=== PATIENT | male | born 1985 | race Two or more races ===

== ENCOUNTER 2019-03-23 09:27 | Emergency (ER) | payer SELFPAY ==
--- NOTE | 2019-03-23 10:18 | EDM.PDOC ---
ED HPI GENERAL MEDICAL PROBLEM - General Chief Complaint: Lower Extremity Injury/Pain Stated Complaint: LEFT LOWER LEG PAIN Time Seen by Provider: 03/23/19 09:47 Source of Information: Reports: Patient History Limitations: Reports: No Limitations - History of Present Illness INITIAL COMMENTS - FREE TEXT/NARRATIVE: HISTORY AND PHYSICAL: History of present illness: 33-year-old male presents to ER complaining of left posterior knee pain which started approximately 1 week ago. Patient describes the pain as being throbbing , aching and cramping in nature. Patient reports that the pain originates behind his left knee and upper calf area and at times can extend up his thigh and down his left calf. Patient reports the pain is aggravated by lying down and when stepping on the clutch in his truck. He reports the pain is alleviated by standing. The pain is rated as an 8 out of 10 when it is at its worst. Patient denies any history of left knee surgery or any trauma recently. He reports the pain started insidiously and has been slowly getting worse. 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 Patient has tried taking [id number] ibuprofen but has only had minimal relief. Denies any tobacco use or illicit drug use. Drinks alcohol approximately once or twice per month. Patient denies having any fevers, chills, blurry vision, sore throat, cough, shortness of breath, chest pain, palpitations, nausea, abdominal pain, numbness or tingling in extremities. Review of systems: As per history of present illness and below otherwise all systems reviewed and negative. Past medical history: As per history of present illness and as reviewed below otherwise noncontributory. Surgical history: As per history of present illness and as reviewed below otherwise noncontributory. Social history: No reported history of drug or alcohol abuse. Family history: As per history of present illness and as reviewed below otherwise noncontributory. Physical exam: HEENT: Atraumatic, normocephalic, pupils reactive, negative for conjunctival pallor or scleral icterus, mucous membranes moist, throat clear, neck supple, nontender, trachea midline. Lungs: Clear to auscultation. Heart: S1S2, regular. Abdomen: Soft, nondistended, nontender. Non-distended. Pelvis: Deferred. Genitourinary: Deferred. Rectal: Deferred. Extremities: No lower extremity edema appreciated bilaterally. Left Knee: - no obvious deformity, erythema or edema on inspection - anterior knee is non-tender to palpation - tenderness elicited on palpation of biceps femoris tendon Left Calf: - no obvious deformity, erythema or edema on inspection - Kike's sign negative, no induration appreciated or increased warmth Neuro: Awake, alert, oriented. Cranial nerves II through XII unremarkable. Motor and sensory unremarkable throughout. Exam nonfocal. Diagnostics: Left Knee x-ray - negative Left lower extremity venous doppler U/S - no DVT Therapeutics: IM Ketorolac 60 mg IM x 1 Impression: 1. Left knee pain 2. Hypertension Plan: 1. For left knee pain, recommended rest, ice, compression and elevation. Also provided script for diclofenac 25 mg BID PRN. Advised patient to follow-up with primary care provider if pain persists or worsens. 2. For hypertension, advised she do follow up with his primary care provider to have his blood pressure rechecked. Patient denies any prior history of hypertension and is asymptomatic at this time. Definitive disposition and diagnosis as appropriate pending reevaluation and review of above. Left knee Pain Score (Numeric/FACES): 9 - Related Data Allergies Allergy/AdvReac Type Severity Reaction Status Date / Time Penicillins Allergy Airway Verified 03/23/19 09:39 Tightness Home Meds: Home Meds Diclofenac Sodium 25 mg PO BID PRN 14 Days #28 tablet. 03/23/19 [Rx] Past Medical History - Past Health History Medical/Surgical History: Denies Medical/Surgical History HEENT History: Reports: None Cardiovascular History: Reports: None Respiratory History: Reports: None Gastrointestinal History: Reports: None Genitourinary History: Reports: None Musculoskeletal History: Reports: None Neurological History: Reports: None Psychiatric History: Reports: None Endocrine/Metabolic History: Reports: None Hematologic History: Reports: None Immunologic History: Reports: None Oncologic (Cancer) History: Reports: None Dermatologic History: Reports: None - Past Surgical History Head Surgeries/Procedures: Reports: None HEENT Surgical History: Reports: None Cardiovascular Surgical History: Reports: None Respiratory Surgical History: Reports: None GI Surgical History: Reports: None Male Surgical History: Reports: None Endocrine Surgical History: Reports: None Neurological Surgical History: Reports: None Musculoskeletal Surgical History: Reports: None Oncologic Surgical History: Reports: None Dermatological Surgical History: Reports: None Social & Family History - Family History Family Medical History: Noncontributory - Tobacco Use Smoking Status *Q: Never Smoker Second Hand Smoke Exposure: No - Caffeine Use Caffeine Use: Reports: Coffee - Recreational Drug Use Recreational Drug Use: No Review of Systems - Review of Systems Review Of Systems: ROS reveals no pertinent complaints other than HPI. ED EXAM, GENERAL - Physical Exam Exam: See Below Course - Vital Signs Last Recorded V/S: Last Vital Signs Temp 96.7 F 03/23/19 09:37 Pulse 95 03/23/19 09:37 Resp 18 03/23/19 09:37 BP 168/79 H 03/23/19 09:37 Pulse Ox 95 03/23/19 09:37 - Orders/Labs/Meds Orders: Active Orders 24 hr Category Date Time Status Ketorolac [Toradol] Med 03/23/19 12:10 Once 60 mg IM ONETIME ONE Departure - Departure Time of Disposition: 12:13 Disposition: Home, Self-Care 01 Condition: Fair Clinical Impression: Left knee pain - Discharge Information *PRESCRIPTION DRUG MONITORING PROGRAM REVIEWED*: Not Applicable *COPY OF PRESCRIPTION DRUG MONITORING REPORT IN PATIENT GONZALEZ: Not Applicable Prescriptions: Diclofenac Sodium 25 mg PO BID PRN 14 Days #28 tablet.dr SANTILLAN Reason: Pain Instructions: Knee Pain, Adult Referrals: PCP,None [Primary Care Provider] - Forms: ED Department Discharge Additional Instructions: The following information is given to patients seen in the emergency department who are being discharged to home. This information is to outline your options for follow-up care. We provide all patients seen in our emergency department with a follow-up referral. The need for follow-up, as well as the timing and circumstances, are variable depending upon the specifics of your emergency department visit. If you don't have a primary care physician on staff, we will provide you with a referral. We always advise you to contact your personal physician following an emergency department visit to inform them of the circumstance of the visit and for follow-up with them and/or the need for any referrals to a consulting specialist. The emergency department will also refer you to a specialist when appropriate. This referral assures that you have the opportunity for follow-up care with a specialist. All of these measure are taken in an effort to provide you with optimal care, which includes your follow-up. Under all circumstances we always encourage you to contact your private physician who remains a resource for coordinating your care. When calling for follow-up care, please make the office aware that this follow-up is from your recent emergency room visit. If for any reason you are refused follow-up, please contact the [facility] Emergency Department at and asked to speak to the emergency department charge nurse. - My Orders Last 24 Hours: My Active Orders 03/23/19 12:10 Ketorolac [Toradol] 60 mg IM ONETIME ONE - Assessment/Plan Last 24 Hours: My Active Orders 03/23/19 12:10 Ketorolac [Toradol] 60 mg IM ONETIME ONE
--- NOTE | 2019-03-23 10:38 | CR ---
INDICATION: Left knee pain. TECHNIQUE: Three views of the left knee. COMPARISON: None. FINDINGS: No joint effusion, joint space narrowing, chondrocalcinosis or other abnormality. IMPRESSION: Negative left knee. Dictated by Ceasar Jim MD @ Mar 23 2019 10:34AM Signed by Dr. Ceasar Jim @ Mar 23 2019 10:36AM
--- NOTE | 2019-03-23 11:56 | US ---
Left lower extremity deep venous ultrasound: Duplex and color Doppler imaging was obtained of the left common femoral, superficial femoral, popliteal, anterior tibial and peroneal veins. Comparison: No prior venous imaging. Findings: Normal compression, augmentation and phasic flow is noted. Impression: No evidence of deep venous thrombosis within the left lower extremity. Diagnostic code #1 MTDD
[2019-03-23] MEDS ORDERED: Ketorolac 60 MG/2 ML SDV IM ONE (12:10)
[2019-03-23 12:28] VITALS: BP 129/78; PULSE 85
== END 2019-03-23 12:30 | disposition home or self-care (01) ==
LOC: MW.ED 09:27
DX: M25.562 Pain in left knee (principal); I10 Essential (primary) hypertension; Z88.0 Allergy status to penicillin
CPT/HCPCS: 73562; 93971; 96372; 99284; J1885